=== PATIENT | female | born 1990 | race Caucasian/White ===

== ENCOUNTER 2018-11-20 11:18 | Outpatient (CLI) | payer OTHER ==
[2018-11-20 11:34] VITALS: BP 141/77; PULSE 120; RESP 15; TEMP 98.7
[2018-11-20 11:40] LABS: Appearance,Urine Clear (Clear); Bilirubin,Urine Negative (Negative); Blood,Urine Negative (Negative); Color,Urine Light Yellow; Glucose,Urine (UA) Negative (Negative); Ketones,Urine Negative (Negative); Leukocyte Esterase,Urine Negative (Negative); Nitrite,Urine Negative (Negative); Protein,Urine Negative (Negative); Specific Gravity,Urine 1.008 (1.001-1.035); Urobilinogen,Urine <2.0 mg/dL (<2.0)
--- NOTE | 2018-12-10 10:29 | P.MSEPDOC ---
Presenting Problems - Arrival Data Date of Arrival on Unit: 11/20/18 Time of Arrival on Unit: 11:18 Mode of Transport: Ambulatory - Complaint Comment: pain Medical History - Information : 1 Para: 0 Term: 0 : 0 Abortions: Spontaneous or Elective: 0 Number of Living Children: 0 - Gestational Age Gestational Age by WENDI (wks/days): 27 Weeks and 1 Days Review of Systems - Review of Systems Constitutional: No problems Breast: No problems ENT: No problems Cardiovascular: No problems Respiratory: No problems Gastrointestinal: No problems Genitourinary: No problems Musculoskeletal: No problems Neurological: No problems Skin: No problems Vital Signs - Temperature Temperature: 98.7 F Temperature Source: Temporal Artery Scan - Pulse Brachial Pulse Rate: 120 Pulse Assessment Method: Pulse Oximetry - Respirations Respiratory Rate: 15 Oxygen Delivery Method: Room Air O2 Sat by Pulse Oximetry: 99 - Blood Pressure Right Arm Sitting Blood Pressure: 141/77 Blood Pressure Mean: 98 Blood Pressure Source: Automatic Cuff Medical Screen Scoring (Pre) - Uterine Contractions Frequency: N/A Duration: N/A Intensity: N/A - Maternal Vital Signs Maternal Temperature: N/A Maternal Blood Pressure: N/A Signs of Preeclampsia: N/A Maternal Respirations: N/A - Pain Assessment Pain Location and Character: Left, Back, Abdomen Pain Scale Used: Numeric (1 - 10) Pain Intensity: 8 Pain Description: *Acute Pain Frequency: Intermittent Pain Duration Units: Days Pain Behavior: Vocalization Pain Aggravating Factors: Activity - Assessment Baseline FHR: 130 Heart Rate - NICHD Category: Category I (Normal) = 0 Position: N/A Station: N/A - Total Score Total Score (Pre): 0 - Level of Risk Level of Risk: N/A Medical Screen Scoring (Post) - Cervical Exam Dilation: 0 cm = 0 Membranes: Intact - Total Score Total Score (Post): 0 - Post Treatment Level of Risk Post Treatment Level of Risk: Low (0-5) Physician Notification (Post) - Physician Notified Physician Notified Date: 11/20/18 Physician Notified Time: 12:10 Spoke With: Dr Duran New Order Received: Yes - Notification Comment Comment: pt here with c/o left sided back pain that shoots towards the front. pt states it started 3 days ago and is occassional. RN observed a couple irregular contx,pt's cervix closed, no bleeding, reasurring fht, u/a normal. orders received to dc pt home and f/u this week with OB per t.o. Dr Duran Disposition - Disposition OB Disposition: Triage, Discharge to home, Written follow up instructions reviewed Discharge Date: 11/20/18 Discharge Time: 12:23 I agree with the RN Medical Screening Exam: Yes Physician's MSE Comment: signs and symptoms of labor discussed per nursing staff. May use heating pad as needed, suspect round ligament pain. Risk & Benefit of care provided described in d/c instruction: Yes Diagnosis: RELATED CONDITIONS, UNSPECIFIED, THIRD TRIMESTER
== END 2018-11-20 12:24 | disposition home or self-care (01) ==
LOC: FBPOP 11:18
PROVIDERS: ATTEND Obstetrics & Gynecology
DX: O26.93 Pregnancy related conditions, unspecified, third trimester (principal); Z3A.27 27 weeks gestation of pregnancy
CPT/HCPCS: 81003; G0463; 99213

== ENCOUNTER 2018-12-16 10:37 | Observation (INO) | payer OTHER ==
[2018-12-16] MEDS ORDERED: NIFEdipine 10 MG CAP PO STA (11:09)
[2018-12-16] MEDS: LACTATED RINGERS 1,000 ML IV SCH ×3 (11:25→17:07)
--- NOTE | 2018-12-16 12:37 | US ---
EXAMINATION TYPE: US OB >= 14 wk fetus DATE OF EXAM: 12/16/2018 COMPARISON: None CLINICAL HISTORY: complete OB ultrasound; pre term contractions TECHNIQUE: Transabdominal (TA) GESTATIONAL AGE / DATING Physician Established: (30 weeks/6 days) EDC: 02/18/2019 Dates by LMP: LMP unknown Dates by First Scan: No previous scan here Dates by Current Scan: (33 weeks/3 days) EDC: 01/31/2019 Beta HCG (if available): NA SURVEY IUP: Single PLACENTA: Anterior PREVIA: No Previa YUNIOR: 15.5 cm Normal CERVICAL LENGTH (transabdominal: norm > 3.0cm): 3.86 cm BIOMETRY PRESENTATION: Vertex LIE: Longitudinal BPD: 8.8 cm 35 weeks / 2 days HC: 30.6 cm 34 weeks / 0 days AC: 28.4 cm 32 weeks / 3 days FL: 6.5 cm 33 weeks / 4 days ESTIMATED WEIGHT IN GRAMS: 2133 grams ESTIMATED WEIGHT IN LBS/OZ: 4 lbs. 11 oz. WEIGHT PERCENTAGE BASED ON ESTABLISHED DATES: 97.0% HC/AC: 1.08 Normal FL/AC: 22.92 Normal HEART RATE: 128 bpm RHYTHM: Normal Tech findings relayed to patient's RNGely at exam's end. JJ IMPRESSION: Limited survey. Single viable intrauterine corresponding to ultrasound age 33 weeks 3 days with estimated date of delivery January 31, 2019
--- NOTE | 2018-12-16 12:39 | US ---
EXAMINATION TYPE: US OB TV Cervical Measurement DATE OF EXAM: 12/16/2018 COMPARISON: NONE REASON FOR EXAM: Per Ordering Physician?this transvaginal scan is to assess the CERVICAL LENGTH for i ncompetence or funneling. GESTATIONAL AGE / DATING Physician Established: (30 weeks/6 days) EDC: 02/18/2019 Dates by Current Scan: See TA OB US today, 33weeks/3 days MATERNAL/ SURVEY CERVICAL LENGTH (transvaginal: norm> 2.5cm): 3.6 cm post contraction per patient Ultrasound evidence of shortened cervix? no Ultrasound evidence of funneling? no HEART RATE: 128 bpm TA US RHYTHM: Normal IMPRESSION: Cervical length within normal limits
--- NOTE | 2018-12-16 12:41 | P.PN ---
Progress Note - Text Progress Note Date: 12/16/18 This is a 28-year-old 1 woman who is 30-6/7 weeks' gestation presents to labor and delivery triage with some abdominal tightening. She is found to be deandra every 2 minutes. IV fluid hydration is initiated. Cervical length is 3.6 cm, fibronectin negative however her cervix is 1 cm dilated 40% effaced and the vertex is in the -3 station. Plan is to observe for the next several hours. Should She have ongoing contractions and/or further dilation of the cervix we will transport to a tertiary care facility. Single dose of betamethasone will be given at this time. She'll be closely followed. status is reassuring by external monitoring for gestational age.
[2018-12-16] MEDS: BETAMET ACET-BETAMETH SOD PHOS 6 MG/ML VIAL IM SCH (12:48)
[2018-12-16 12:50] LABS: Basophils # (A) 0.1 k/uL (0-0.2); Basophils % (A) 0 %; Eosinophils # (A) 0.4 k/uL (0-0.7); Eosinophils % (A) 2 %; HCT 36.4 % (34.0-46.0); HGB 12.3 gm/dL (11.4-16.0); Lymphocytes # (A) 2.5 k/uL (1.0-4.8); Lymphocytes % (A) 15 %; MCH 28.8 pg (25.0-35.0); MCHC 33.6 g/dL (31.0-37.0); MCV 85.6 fL (80.0-100.0); Mean Platelet Volume 8.2; Monocytes # (A) 0.9 k/uL (0-1.0); Monocytes % (A) 5 %; Neutrophils # (A) 12.1 k/uL (1.3-7.7); Neutrophils % (A) 74 %; Platelet Count 274 k/uL (150-450); RBC 4.26 m/uL (3.80-5.40); RDW 13.1 % (11.5-15.5); WBC 16.3 k/uL (3.8-10.6)
[2018-12-16] MEDS ORDERED: LACTATED RINGERS 1,000 ML IV SCH (13:00)
[2018-12-16 13:22] LABS: Appearance,Urine Clear (Clear); Bacteria,Urine Rare /hpf; Bilirubin,Urine Negative (Negative); Blood,Urine Negative (Negative); Color,Urine Yellow; Glucose,Urine (UA) Negative (Negative); Ketones,Urine Negative (Negative); Leukocyte Esterase,Urine Small (Negative); Mucus,Urine Rare /hpf; Nitrite,Urine Negative (Negative); Protein,Urine Negative (Negative); RBC,Urine 1 /hpf (0-5); Specific Gravity,Urine 1.013 (1.001-1.035); Squamous Epithelial Cell,Urine 3 /hpf (0-4); Urobilinogen,Urine <2.0 mg/dL (<2.0); WBC,Urine 1 /hpf (0-5)
[2018-12-16] MEDS ORDERED: NIFEdipine 10 MG CAP PO PRN (16:27)
--- NOTE | 2018-12-16 16:39 | P.HPOB ---
History of Present Illness H&P Date: 12/16/18 Chief Complaint: Abdominal pain This is a 28-year-old 1 para 0 woman who presents at 30-6/7 weeks' gestation with nonspecific abdominal pain. This started on over the last several hours. She denies any vaginal bleeding or leakage of fluids. She was concerned she had contractions therefore came into labor and delivery. She was seen for similar complaints 2 weeks ago and her cervix was noted to be closed, thick and high. On presentation here her cervix is 1 cm dilated, 40% effaced and vertex -3 station. Prior to vaginal examination a fibronectin was collected and the results are negative. She had a transvaginal cervical length ultrasound with a cervical length of 3.86 cm. On was in the vertex presentation with an estimated weight greater than the 97th percentile. On tocometer she is found to have a persistently variable pattern. Over 5 hours of observation her cervix has remained unchanged at 1 cm, 40% and the vertex in the -3 station. Her has been uncomplicated up until this point. She reports good movement. Review of Systems Constitutional: Denies chills, Denies fever Cardiovascular: Denies chest pain, Denies shortness of breath Respiratory: Denies congestion, Denies cough Gastrointestinal: Reports abdominal pain, Denies BRBPR, Denies change in bowel habits, Denies diarrhea, Denies heartburn, Denies nausea, Denies vomiting Genitourinary: Reports , Denies abnormal vaginal bleeding Musculoskeletal: Reports low back pain Integumentary: Denies rash Neurological: Denies headaches Psychiatric: Denies anxiety, Denies depression Hematologic/Lymphatic: Denies easy bleeding, Denies easy bruising Past Medical History History of Any Multi-Drug Resistant Organisms: None Reported Smoking Status: Never smoker Medications and Allergies Home Medications Medication Instructions Recorded Confirmed Type No Known Home Medications 11/20/18 11/20/18 History Allergies Allergy/AdvReac Type Severity Reaction Status Date / Time No Known Allergies Allergy Verified 11/20/18 11:28 Exam Intake and Output 12/16/18 12/16/18 12/16/18 06:59 14:59 22:59 Other: Weight 82.554 kg This is a pleasant-appearing visibly gravid, female. She is in no obvious distress. HEENT exam is unremarkable. Her breathing is unlabored and her lungs are clear to auscultation. The heart is a regular rate and rhythm. The abdomen is gravid, soft and nontender with no flank pain no upper quadrant pain and the uterus palpates soft. On pelvic examination she is normal female external genitalia. On cervical exam the cervix is 1 cm dilated, 40% effaced and the vertex is in the -3 station. Neurologically she is grossly intact. She has trace lower extremity edema. heart tones are reassuring for gestational age by external monitoring and tocometer shows an irritable pattern Results Result Diagrams: 12/16/18 11:30 Abnormal Lab Results - Last 24 Hours (Table) 12/16/18 12/16/18 Range/Units 10:45 11:30 WBC 16.3 H (3.8-10.6) k/uL Neutrophils # 12.1 H (1.3-7.7) k/uL Ur Leukocyte Esterase Small H (Negative) Urine Bacteria Rare H (None) /hpf Urine Mucus Rare H (None) /hpf Assessment and Plan (1) 30 weeks gestation of Current Visit: Yes Status: Acute Code(s): Z3A.30 - 30 WEEKS GESTATION OF SNOMED Code(s): 98818165 (2) contractions Current Visit: Yes Status: Acute Code(s): O47.00 - FALSE LABOR BEFORE 37 COMPLETED WEEKS OF GEST, UNSP TRI SNOMED Code(s): 340587817 Plan: 28-year-old 1 at 30-6/7 weeks' gestation with contractions, 1 cm dilated. Negative fibronectin and normal cervical length ultrasound. Patient is admitted for ongoing observation secondary to precarious gestational age and cervical exam. She has received her initial dose of betamethasone and will remain in-house until she receives her second dose of betamethasone. At that time we will monitor for labor and should she have any progression of her symptoms or cervical dilation she is aware we will transfer her to a level III NICU facility for further evaluation. As she has not had any cervical change while here I will not initiate tocolysis at this time. Counseled the patient that magnesium sulfate will be started should she have any increase in contraction activity with cervical change. She is to be on bed rest with bathroom privileges, DVT prophylaxis. status is reassuring by external monitoring and OB ultrasound which shows an appropriately grown vertex .
[2018-12-16 17:01] VITALS: BP 137/79; PULSE 92; RESP 18; TEMP 98.1
[2018-12-16 17:06] VITALS: BMI 30.2
[2018-12-16] MEDS ORDERED: ACETAMINOPHEN TAB 325 MG TAB PO PRN (18:57)
--- NOTE | 2018-12-17 07:54 | P.DS ---
Providers Date of admission: 12/16/18 16:30 Expected date of discharge: 12/17/18 Attending physician: Love Sheth Primary care physician: Stated None - Discharge Diagnosis(es) (1) 30 weeks gestation of Current Visit: Yes Status: Acute (2) contractions Current Visit: Yes Status: Acute Hospital Course: This is a 28-year-old 1 para 0 woman who was admitted at 30-6/7 weeks' gestation with persistent contractions and cervix dilated 1 cm. Despite reassuring testing with negative fibronectin and cervical length of greater than 3.6 cm, she continued to have an irritable uterine pattern and concerning cervical exam. Therefore she was admitted for observation overnight. She did have intermittent contraction activity that she described as very mild. She was able to sleep throughout the night without disruption. This morning she reports good movement and no contractions or abdominal discomfort. She denies leakage of fluid or vaginal bleeding. On repeat cervical examination the cervix is 1, 25% and the vertex high. She was therefore discharged home pending administration of her second dose of betamethasone to decreased activity. Patient Condition at Discharge: Stable Plan - Discharge Summary New Discharge Prescriptions: New NIFEdipine [Procardia] 10 mg PO TID PRN #30 cap PRN Reason: Contractions Discharge Medication List NIFEdipine [Procardia] 10 mg PO TID PRN #30 cap 12/17/18 [Rx] Follow up Appointment(s)/Referral(s): Love Sheth MD [STAFF PHYSICIAN] - 12/20/18 Activity/Diet/Wound Care/Special Instructions: Return to the family place with any significant increase in uterine contractions or abdominal pain not improved by Procardia, vaginal bleeding, rupture of membranes, decreased movement. No intercourse, nothing in the vagina. Decreased activity at home with minimal driving, no vigorous exercise or extended periods of ambulation. Discharge Disposition: HOME SELF-CARE
[2018-12-17] MEDS: BETAMET ACET-BETAMETH SOD PHOS 6 MG/ML VIAL IM SCH (12:46)
== END 2018-12-17 13:32 | disposition home or self-care (01) ==
LOC: FBPOP 10:37 → 4FBP 16:30
PROVIDERS: ADMIT Obstetrics & Gynecology; ATTEND Obstetrics & Gynecology
DX: O60.03 Preterm labor without delivery, third trimester (principal); Z3A.30 30 weeks gestation of pregnancy
CPT/HCPCS: 96360; 96372 ×2; 82731; 85025; 81001; 76805; 76817; G0378 ×2; J0702 ×2

== ENCOUNTER 2019-01-18 13:21 | Outpatient (CLI) | payer OTHER ==
[2019-01-18 14:02] VITALS: BP 139/83; PULSE 111; RESP 18; TEMP 98.2
--- NOTE | 2019-02-08 09:43 | P.MSEPDOC ---
Presenting Problems - Arrival Data Date of Arrival on Unit: 01/18/19 Time of Arrival on Unit: 13:35 Mode of Transport: Ambulatory - Complaint OB-Reason for Admission/Chief Complaint: Rule Out SROM Comment: what had a gush of clear fluid around 1100 this am, small amout of leaking since Medical History - Information : 1 Para: 0 Term: 0 : 0 Abortions: Spontaneous or Elective: 0 Number of Living Children: 0 - Gestational Age Gestational Age by EWNDI (wks/days): 35 Weeks and 4 Days - History Comment: pt has been treated for labor with this , also recieved 2 doses of celestone in Nov Review of Systems - Review of Systems Constitutional: No problems Breast: No problems ENT: Nasal congestion Cardiovascular: No problems Respiratory: No problems Gastrointestinal: Diarrhea Genitourinary: No problems Musculoskeletal: No problems Neurological: Dizziness Skin: No problems Comment: dizziness after talking a shower Vital Signs - Temperature Temperature: 98.2 F Temperature Source: Temporal Artery Scan - Pulse Pulse Oximetery Pulse Rate: 111 Pulse Assessment Method: Automatic Cuff - Respirations Respiratory Rate: 18 Oxygen Delivery Method: Room Air - Blood Pressure Right Arm Blood Pressure: 139/83 Blood Pressure Mean: 101 Blood Pressure Source: Automatic Cuff Medical Screen Scoring (Pre) - Cervical Exam Dilation: 1-3 cm = 1 Effacement: More than 50% = 2 - Uterine Contractions Frequency: < 36 weeks = 6 Duration: N/A Intensity: N/A - Pain Assessment Pain Location and Character: Abdomen Pain Scale Used: Numeric (1 - 10) Pain Intensity: 1 Pain Description: Cramping Pain Radiation Location: none Pain Frequency: Intermittent Pain Duration: 6 Pain Duration Units: Hours Pain Behavior: None Exhibited Effects of Pain: none - Assessment Baseline FHR: 130 Heart Rate - NICHD Category: Category I (Normal) = 0 NST: Reactive Station: N/A - Total Score Total Score (Pre): 9 - Level of Risk Level of Risk: Low (0-5) Physician Notification (Pre) - Physician Notified Physician Notified Date: 01/18/19 Medical Screen Scoring (Post) - Cervical Exam Dilation: Exam Deferred Effacement: Exam Deferred Membranes: Intact - Uterine Contractions Frequency: > 5 minutes apart = 1 Duration: > 40 seconds = 2 Intensity: N/A - Maternal Vital Signs Maternal Temperature: N/A Maternal Blood Pressure: N/A Signs of Preeclampsia: N/A Maternal Respirations: N/A - Maternal Trauma Maternal Trauma: N/A - Assessment Heart Rate: 130 Heart Rate - NICHD Category: Category I (Normal) = 0 NST: Reactive Position: N/A Station: N/A - Total Score Total Score (Post): 3 - Post Treatment Level of Risk Post Treatment Level of Risk: Low (0-5) Physician Notification (Post) - Physician Notified Physician Notified Date: 01/18/19 Physician Notified Time: 15:38 Physician/Practitioner Notified:: Meryl Spoke With: Meryl New Order Received: Yes - Notification Comment Comment: Reviewed FHT strip, negative amnisure, pt may be d/c home, to follow up as scheduled. Disposition - Disposition OB Disposition: Discharge to home, Written follow up instructions reviewed Discharge Date: 01/18/19 Discharge Time: 15:50 I agree with the RN Medical Screening Exam: Yes Risk & Benefit of care provided described in d/c instruction: Yes Diagnosis: FALSE LABOR BEFORE 37 COMPLETED WEEKS OF GEST, THIRD TRI
== END 2019-01-18 15:50 | disposition home or self-care (01) ==
LOC: FBPOP 13:21
PROVIDERS: ATTEND Obstetrics & Gynecology
DX: O47.03 False labor before 37 completed weeks of gestation, third trimester (principal); Z3A.35 35 weeks gestation of pregnancy
CPT/HCPCS: 84112; G0463; 99213

== ENCOUNTER 2019-01-24 01:49 | Outpatient (CLI) | payer OTHER ==
[2019-01-24 02:05] VITALS: BP 145/88; PULSE 102; RESP 16; TEMP 98.3
--- NOTE | 2019-02-20 09:59 | P.MSEPDOC ---
Presenting Problems - Arrival Data Date of Arrival on Unit: 01/24/19 Time of Arrival on Unit: 01:49 Mode of Transport: Wheelchair - Complaint OB-Reason for Admission/Chief Complaint: Possible Onset of Labor Comment: Contractions that are 3-4 minutes apart that started around 1800 this evening. Medical History - Information : 1 Para: 0 Term: 0 : 0 Abortions: Spontaneous or Elective: 0 Number of Living Children: 0 - Gestational Age Gestational Age by WENDI (wks/days): 36 Weeks and 3 Days - History Comment: labor this , no longer on procardia Review of Systems - Review of Systems Constitutional: No problems Breast: No problems ENT: No problems Cardiovascular: No problems Respiratory: No problems Gastrointestinal: No problems Genitourinary: No problems Musculoskeletal: No problems Neurological: No problems Skin: No problems Vital Signs - Temperature Temperature: 98.3 F Temperature Source: Temporal Artery Scan - Pulse Pulse Oximetery Pulse Rate: 102 Pulse Assessment Method: Automatic Cuff - Respirations Respiratory Rate: 16 Oxygen Delivery Method: Room Air - Blood Pressure Sitting Blood Pressure: 145/88 Blood Pressure Mean: 107 Blood Pressure Source: Automatic Cuff Medical Screen Scoring (Pre) - Cervical Exam Dilation: 1-3 cm = 1 Effacement: More than 50% = 2 Membranes: Intact - Uterine Contractions Frequency: > 5 minutes apart = 1 Duration: > 40 seconds = 2 Intensity: N/A - Maternal Vital Signs Maternal Temperature: N/A Maternal Blood Pressure: N/A Signs of Preeclampsia: N/A Maternal Respirations: N/A - Pain Assessment Pain Scale Used: Numeric (1 - 10) Pain Intensity: 8 Pain Management Goal: 5 Pain Description: *Acute, Cramping Pain Frequency: Intermittent - Maternal Trauma Maternal Trauma: N/A - Assessment Baseline FHR: 135 Heart Rate - NICHD Category: Category I (Normal) = 0 NST: Reactive Position: N/A Station: N/A - Total Score Total Score (Pre): 6 - Level of Risk Level of Risk: Medium (6-9) Physician Notification (Pre) - Physician Notified Physician Notified Date: 01/24/19 Physician Notified Time: 02:58 Physician/Practitioner Notifed:: Dr. Ramos New Order Received: Yes - Notification Comment Comment: Discharge patient home with instructions, patient to follow up in the office with Dr. Sheth in the am. Disposition - Disposition OB Disposition: Discharge to home Discharge Date: 01/24/19 Discharge Time: 02:58 I agree with the RN Medical Screening Exam: Yes Risk & Benefit of care provided described in d/c instruction: Yes Diagnosis: FALSE LABOR BEFORE 37 COMPLETED WEEKS OF GEST, THIRD TRI
== END 2019-01-24 03:05 | disposition home or self-care (01) ==
LOC: FBPOP 01:49
PROVIDERS: ATTEND Obstetrics & Gynecology Obstetrics
DX: O47.03 False labor before 37 completed weeks of gestation, third trimester (principal); Z3A.36 36 weeks gestation of pregnancy
CPT/HCPCS: 59025; G0463; 99213

== ENCOUNTER 2019-02-04 11:48 | Outpatient (CLI) | payer OTHER ==
[2019-02-04 13:00] LABS: Appearance,Urine Clear (Clear); Bilirubin,Urine Negative (Negative); Blood,Urine Negative (Negative); Color,Urine Light Yellow; Glucose,Urine (UA) Negative (Negative); Ketones,Urine Negative (Negative); Leukocyte Esterase,Urine Small (Negative); Mucus,Urine Rare /hpf; Nitrite,Urine Negative (Negative); Protein,Urine Negative (Negative); Specific Gravity,Urine 1.007 (1.001-1.035); Squamous Epithelial Cell,Urine 1 /hpf (0-4); Urobilinogen,Urine <2.0 mg/dL (<2.0); WBC,Urine 3 /hpf (0-5)
[2019-02-04 13:04] LABS: ALT 33 U/L (9-52); AST 23 U/L (14-36); Blood Urea Nitrogen 12 mg/dL (7-17); LDH 528 U/L (313-618); Uric Acid 4.7 mg/dL (3.7-7.4)
[2019-02-04 13:22] LABS: Basophils # (A) 0.1 k/uL (0-0.2); Basophils % (A) 0 %; Eosinophils # (A) 0.3 k/uL (0-0.7); Eosinophils % (A) 2 %; HCT 36.5 % (34.0-46.0); HGB 12.2 gm/dL (11.4-16.0); Lymphocytes # (A) 2.4 k/uL (1.0-4.8); Lymphocytes % (A) 15 %; MCH 27.1 pg (25.0-35.0); MCHC 33.4 g/dL (31.0-37.0); MCV 80.9 fL (80.0-100.0); Mean Platelet Volume 8.7; Monocytes # (A) 0.8 k/uL (0-1.0); Monocytes % (A) 5 %; Neutrophils # (A) 11.9 k/uL (1.3-7.7); Neutrophils % (A) 74 %; Platelet Count 299 k/uL (150-450); Poikilocytosis Slight; RBC 4.51 m/uL (3.80-5.40); RDW 14.2 % (11.5-15.5); WBC 16.1 k/uL (3.8-10.6)
[2019-02-04 13:46] VITALS: PULSE 96; TEMP 97.3
[2019-02-04 13:50] VITALS: BP 137/81; RESP 14
--- NOTE | 2019-03-03 21:52 | P.MSEPDOC ---
Presenting Problems - Arrival Data Date of Arrival on Unit: 02/04/19 Time of Arrival on Unit: 11:49 Mode of Transport: Ambulatory - Complaint OB-Reason for Admission/Chief Complaint: Possible Onset of Labor Comment: contraction since this morning Medical History - Information : 1 Para: 0 Term: 0 : 0 Abortions: Spontaneous or Elective: 0 Number of Living Children: 0 - Gestational Age Gestational Age by WENDI (wks/days): 38 Weeks and 0 Days Review of Systems - Review of Systems Constitutional: No problems Breast: No problems ENT: No problems Cardiovascular: No problems Respiratory: No problems Gastrointestinal: No problems Genitourinary: No problems Musculoskeletal: No problems Neurological: No problems Skin: No problems Vital Signs - Temperature Temperature: 97.3 F Temperature Source: Temporal Artery Scan - Pulse Right Brachial Pulse Rate: 96 Pulse Assessment Method: Automatic Cuff - Respirations Respiratory Rate: 14 Oxygen Delivery Method: Room Air - Blood Pressure Right Arm Blood Pressure: 137/81 Blood Pressure Mean: 99 Blood Pressure Source: Automatic Cuff Medical Screen Scoring (Pre) - Cervical Exam Dilation: 1-3 cm = 1 Effacement: More than 50% = 2 Membranes: Intact - Uterine Contractions Frequency: > 5 minutes apart = 1 Duration: > 40 seconds = 2 Intensity: N/A - Maternal Vital Signs Maternal Temperature: N/A Maternal Blood Pressure: Diastolic > 89 = 1 Signs of Preeclampsia: N/A Maternal Respirations: N/A - Pain Assessment Pain Location and Character: Lower, Abdomen Pain Scale Used: Numeric (1 - 10) Pain Intensity: 5 Pain Management Goal: 3 Pain Description: Cramping Pain Frequency: Intermittent Pain Duration: 6 Pain Duration Units: Hours Pain Behavior: None Exhibited Pain Aggravating Factors: Contractions - Maternal Trauma Maternal Trauma: N/A - Assessment Baseline FHR: 135 Heart Rate - NICHD Category: Category I (Normal) = 0 NST: Reactive, Non-reactive = 3 Position: N/A - Total Score Total Score (Pre): 10 - Level of Risk Level of Risk: High (10+) Physician Notification (Pre) - Physician Notified Physician Notified Date: 02/04/19 Physician Notified Time: 12:33 Physician/Practitioner Notifed:: melva Spoke With: melva New Order Received: Yes - Notification Comment Comment: reported pt visit as documented in obix, reported bps. orders for PIH work-up. dr will be over to see pt Medical Screen Scoring (Post) - Cervical Exam Dilation: 1-3 cm = 1 Effacement: More than 50% = 2 Membranes: Intact - Uterine Contractions Frequency: > 5 minutes apart = 1 Duration: > 40 seconds = 2 Intensity: N/A - Maternal Vital Signs Maternal Temperature: N/A Maternal Blood Pressure: N/A Signs of Preeclampsia: N/A Maternal Respirations: N/A - Assessment Heart Rate: 135 - Total Score Total Score (Post): 6 - Post Treatment Level of Risk Post Treatment Level of Risk: Medium (6-9) Physician Notification (Post) - Physician Notified Physician Notified Date: 02/04/19 Physician Notified Time: 13:15 Physician/Practitioner Notified:: melva Spoke With: melva New Order Received: Yes - Notification Comment Comment: dr frye at bedside speaking with pt r/t discharged and follow up appointment. Disposition - Disposition OB Disposition: Discharge to home Discharge Date: 02/04/19 Discharge Time: 13:32 I agree with the RN Medical Screening Exam: Yes Risk & Benefit of care provided described in d/c instruction: Yes Diagnosis: FALSE LABOR AT OR AFTER 37 COMPLETED WEEKS OF GESTATION
== END 2019-02-04 13:32 | disposition home or self-care (01) ==
LOC: FBPOP 11:48
PROVIDERS: ATTEND Obstetrics & Gynecology
DX: O47.1 False labor at or after 37 completed weeks of gestation (principal); Z3A.38 38 weeks gestation of pregnancy
CPT/HCPCS: 59025; 82570; 84156; 82565; 83615; 84450; 84460; 84520; 84550; 85025; 81001; G0463; 99215

== ENCOUNTER 2019-02-05 00:20 | Inpatient (IN) | payer OTHER ==
[2019-02-05] MEDS ORDERED: LIDOCAINE 0.5% (PF) 5 MG/ML (50 ML SDV) SQ PRN (00:57)
[2019-02-05] MEDS ORDERED: OXYTOCIN 10 UNIT/ML 1 ML VIAL IM PRN (00:57)
[2019-02-05] MEDS ORDERED: TERBUTALINE 1 MG/ML VIAL SQ PRN (00:57)
[2019-02-05] MEDS ORDERED: CARBOPROST TROMETHAMINE 250 MCG/ML 1 ML AMP IM PRN (00:57)
[2019-02-05] MEDS ORDERED: METHYLERGONOVINE 0.2 MG/ML 1 ML AMP IM PRN (00:57)
[2019-02-05] MEDS ORDERED: PENICILLIN G POTASSIUM 5,000,000 UNIT in DEXTROSE 5% IN WATER 100 ML IVPB STA ×2 (01:00)
[2019-02-05] MEDS: LACTATED RINGERS 1,000 ML IV SCH ×3 (01:18→21:36)
[2019-02-05 01:23] VITALS: BMI 31.9
[2019-02-05 01:33] LABS: Basophils # (A) 0.1 k/uL (0-0.2); Basophils % (A) 1 %; Eosinophils # (A) 0.5 k/uL (0-0.7); Eosinophils % (A) 3 %; HCT 34.5 % (34.0-46.0); HGB 11.5 gm/dL (11.4-16.0); Lymphocytes # (A) 2.9 k/uL (1.0-4.8); Lymphocytes % (A) 17 %; MCHC 33.2 g/dL (31.0-37.0); MCV 81.3 fL (80.0-100.0); Mean Platelet Volume 8.7; Monocytes % (A) 6 %; Neutrophils # (A) 11.4 k/uL (1.3-7.7); Neutrophils % (A) 69 %; Platelet Count 325 k/uL (150-450); Poikilocytosis Slight; RBC 4.25 m/uL (3.80-5.40); RDW 14.3 % (11.5-15.5); WBC 16.6 k/uL (3.8-10.6)
[2019-02-05] MEDS ORDERED: SODIUM CHLORIDE 0.9% 100 ML BAG ONE (02:55)
[2019-02-05] MEDS ORDERED: ROPIVACAINE 5MG/ML 20ML VIAL ONE (02:55)
[2019-02-05] MEDS ORDERED: fentaNYL (PF) 50 MCG/ML 5 ML AMP ONE (02:55)
[2019-02-05] MEDS: PENICILLIN G POTASSIUM 2,500,000 UNIT in DEXTROSE 5% IN WATER 100 ML IVPB SCH ×4 (05:17→21:36)
[2019-02-05] MEDS ORDERED: KETOROLAC 30 MG/ML 1 ML VIAL ONE (05:42)
[2019-02-05] MEDS ORDERED: ONDANSETRON 4 MG/2 ML VIAL ONE (05:42)
[2019-02-05] MEDS ORDERED: OXYTOCIN 10 UNIT/ML 1 ML VIAL ONE (05:42)
[2019-02-05] MEDS ORDERED: CITRIC ACID-SODIUM CITRATE 15 ML CUP PO ONE (05:46)
--- NOTE | 2019-02-05 06:30 | P.HPOB ---
History of Present Illness H&P Date: 02/05/19 Chief Complaint: Rupture of membranes This is a 28-year-old 1 para 0 woman at 38 and one sevenths weeks gestation who presents with spontaneous rupture of membranes at approximately 2320 on 02/04/2019. At presentation rupture of membranes was confirmed and she was found to be regularly deandra every 4-6 minutes. Her cervix was 3+ centimeters dilated. Her has been complicated by multiple episodes of contractions. She says estimated weight greater than the 95th percentile on recent ultrasound. Her blood type is O- and she is group B strep positive. Review of Systems All systems: negative Past Medical History Past Medical History: Asthma History of Any Multi-Drug Resistant Organisms: None Reported Past Surgical History: No Surgical Hx Reported Past Anesthesia/Blood Transfusion Reactions: No Reported Reaction Past Psychological History: Anxiety Smoking Status: Never smoker Past Alcohol Use History: None Reported Past Drug Use History: None Reported - Past Family History Mother Family Medical History: No Reported History Medications and Allergies Home Medications Medication Instructions Recorded Confirmed Type Pedi Multivit No.25/Folic Acid 2 tab PO DAILY 02/04/19 02/05/19 History [Flintstones Multivit Chew Tab] Allergies Allergy/AdvReac Type Severity Reaction Status Date / Time blackberry Allergy Anaphylaxis Verified 02/05/19 00:56 blueberry Allergy Anaphylaxis Verified 02/05/19 00:56 raspberry Allergy Anaphylaxis Verified 02/05/19 00:56 strawberry Allergy Anaphylaxis Verified 02/05/19 00:56 Exam Vital Signs Temp Pulse Resp BP Pulse Ox 02/05/19 01:18 98.1 F 86 16 160/84 100 Intake and Output 02/04/19 02/04/19 02/05/19 14:59 22:59 06:59 Output Total 150 Balance -150 Output: Urine 150 Straight 150 Other: Weight 87.09 kg Upon my initial evaluation the patient is resting comfortably with an epidural anesthetic in place. On pelvic exam the cervix is 7+ centimeters dilated, 90% effaced and the vertex is in the -2 station. scalp electrode is placed on Provera better management of heart tones secondary to the several episodes of late and variable appearing heart tone decelerations following the patient receiving her epidural. She is deandra spontaneously every 2-4 minutes. Results Result Diagrams: 02/05/19 00:35 Abnormal Lab Results - Last 24 Hours (Table) 02/05/19 Range/Units 00:35 WBC 16.6 H (3.8-10.6) k/uL Neutrophils # 11.4 H (1.3-7.7) k/uL Assessment and Plan (1) 38 weeks gestation of Current Visit: Yes Status: Acute Code(s): Z3A.38 - 38 WEEKS GESTATION OF SNOMED Code(s): 38121068 (2) GBS (group B Streptococcus carrier), +RV culture, currently Current Visit: Yes Status: Acute Code(s): O99.820 - STREPTOCOCCUS B CARRIER STATE COMPLICATING SNOMED Code(s): 4768478568239 (3) Spontaneous rupture of membranes Current Visit: Yes Status: Acute Code(s): SNG8227 - SNOMED Code(s): 831660382 (4) Spontaneous onset of labor Current Visit: Yes Status: Acute Code(s): IPS7990 - SNOMED Code(s): 61835554 (5) Rh negative, maternal Current Visit: Yes Status: Acute Code(s): O26.899 - OTH RELATED CONDITIONS, UNSPECIFIED TRIMESTER; Z67.91 - UNSPECIFIED BLOOD TYPE, RH NEGATIVE SNOMED Code(s): 645052823 Plan: Cyst 28-year-old 1 para 0 woman with an estimated due date of 02/18/2019 who presents at 38 and one sevenths weeks gestation with spontaneous rupture of membranes and onset of labor. heart tones are currently category 2 with decelerations but positive variability. Plan is for close heart tone on the maternal monitoring. Patient and her have been counseled regarding the possibility of delivery should the labor and progress in the setting of nonreassuring heart tones.
[2019-02-05] MEDS ORDERED: ONDANSETRON 4 MG/2 ML VIAL IVP PRN (06:36)
[2019-02-05] MEDS ORDERED: METOCLOPRAMIDE 5 MG/ML 2 ML VIAL IVP PRN (06:36)
[2019-02-05] MEDS ORDERED: diphenhydrAMINE 50 MG/ML 1 ML VIAL IVP PRN (06:36)
[2019-02-05] MEDS ORDERED: Acetaminophen-Codeine 300-30mg TAB PO PRN ×2 (06:36)
--- NOTE | 2019-02-05 06:36 | P.OP ---
Date of Procedure: 02/05/19 Preoperative Diagnosis: Intrauterine at 38 and one sevenths weeks gestation Spontaneous rupture of membranes and active labor Category 3 heart tones Group B strep positive Rh- maternal status Estimated weight greater than the 95th percentile by ultrasound Postoperative Diagnosis: Same plus Occiput posterior position Nuchal cord 1 Procedure(s) Performed: Primary low transverse section Anesthesia: epidural Surgeon: Love Sheth Tennis Racket Repairer #1: Vonda Vazquez Estimated Blood Loss (ml): 600 IV fluids (ml): 800 Urine output (ml): 200 Pathology: none sent Condition: stable Disposition: floor Operative Findings: Male infant in the occiput posterior position with nuchal cord 1. Apgars of 9 at 1 minute and 9 at 5 minutes weighing 8 lbs. 8 oz., 3860 g. Normal-appearing bilateral fallopian tubes and ovaries, intact, three-vessel cord placenta Description of Procedure: After the patient was counseled and consent was obtained, she was taken to the operating room. Her epidural anesthetic had been bolused. She was positioned, prepped and draped in the dorsal supine position with a leftward tilt. Anesthesia was confirmed adequate and a low transverse skin incision was made and carried down to the underlying fascia sharply. The fascia was incised in the midline and extended bilaterally with the Phan scissors. Superior aspect of the fascial incision was elevated and the underlying rectus muscles dissected off sharply. The inferior aspect of the fascial incision was elevated and the underlying rectus muscles dissected off sharply. The rectus muscles were then bluntly in the midline and the peritoneum was tented up using hemostats. The peritoneum was then entered sharply. The peritoneal incision was extended inferiorly and superiorly with the Metzenbaum scissors with excellent visualization of the bladder. Bladder blade was placed. A low transverse uterine incision was made on and carried down to the underlying amniotic membranes. Clear fluid was noted. The uterine incision was extended bilaterally bluntly. Umbilical cord prolapse from the and incision. The head was delivered from the deep maternal pelvis in the occiput posterior position. Once head was delivered nuchal cord was reduced. The rest the was then delivered onto the field. Nose and mouth were bulb suctioned. The cord was clamped and cut and the infant was taken to the warmer. An intact, three-vessel cord placenta was then manually removed. The uterus was exteriorized and cleared of all clot and debris. The uterine incision was delineated using Vasquez's. The uterine incision was then closed in a running locked fashion with 0 Vicryl suture followed by second imbricating layer of the same suture. At this time Dr. Vazquez joined the procedure to assist. The uterine incision was inspected and noted to be hemostatic. The uterus was returned to the abdomen and the gutters were cleared of all clot and debris. The uterine incision was reinspected and again noted to be hemostatic. The rectus muscles, peritoneal edges and fascial edges were inspected and noted to be hemostatic. The fascia was then closed in a running locked fashion with 0 Vicryl suture in halves. The subcuticular tissue with 3-0 chromic. The skin was closed in a subcutaneous fashion with 4-0 Vicryl suture. All counts reported to be as correct by the operating room staff. Patient was transported recovery area in good condition.
[2019-02-05] MEDS ORDERED: DIPH,PERTUS(ACELL)TETVAC-LF 0.5 ML VIAL IM ONE (07:57)
[2019-02-05] MEDS: HYDROmorphone 1 MG/ML 1 ML SYRINGE IVP PRN ×2 (10:50→17:30)
[2019-02-05] MEDS: SENNOSIDES-DOCUSATE SODIUM 1 EACH TAB PO SCH ×2 (12:28→20:09)
[2019-02-05] MEDS: KETOROLAC 30 MG/ML 1 ML VIAL IVP PRN ×2 (12:30→20:08)
[2019-02-05] MEDS: SIMETHICONE 80 MG CHEWABLE PO PRN (14:35)
[2019-02-05] MEDS ORDERED: Rhogam IMMUNE GLOBULIN 1,500 UNIT/1 ML IM ONE (15:50)
[2019-02-06] MEDS: KETOROLAC 30 MG/ML 1 ML VIAL IVP PRN ×2 (01:56→08:53)
[2019-02-06] MEDS ORDERED: ACETAMINOPHEN TAB 325 MG TAB PO PRN (06:37)
[2019-02-06 08:16] LABS: Basophils % (A) 0 %; Eosinophils # (A) 0.4 k/uL (0-0.7); Eosinophils % (A) 2 %; HCT 28.6 % (34.0-46.0); Lymphocytes # (A) 2.4 k/uL (1.0-4.8); Lymphocytes % (A) 16 %; MCH 27.9 pg (25.0-35.0); MCHC 33.9 g/dL (31.0-37.0); MCV 82.4 fL (80.0-100.0); Mean Platelet Volume 9.2; Monocytes # (A) 0.8 k/uL (0-1.0); Monocytes % (A) 5 %; Neutrophils # (A) 11.3 k/uL (1.3-7.7); Neutrophils % (A) 73 %; Platelet Count 243 k/uL (150-450); RBC 3.47 m/uL (3.80-5.40); RDW 14.4 % (11.5-15.5); WBC 15.6 k/uL (3.8-10.6)
[2019-02-06 08:19] LABS: HGB 9.7 gm/dL (11.4-16.0)
--- NOTE | 2019-02-06 08:37 | P.PNOBGPC ---
Subjective - Subjective Principal diagnosis: Status post section Patient reports: Reports appetite normal, Reports voiding normally, Reports pain well controlled, Reports ambulating normally, Denies dizzy ambulation, Denies nauseated : doing well (Monitoring bilirubin levels) Objective - Vital Signs Latest vital signs: Vital Signs Temp Pulse Resp BP Pulse Ox 02/06/19 07:34 98.0 F 93 15 126/68 96 02/06/19 04:00 98.6 F 80 18 122/69 98 02/05/19 23:08 98.5 F 97 18 120/77 98 02/05/19 20:00 98.1 F 93 18 137/89 97 02/05/19 15:59 98.2 F 80 16 124/80 98 02/05/19 12:00 98.1 F 75 16 137/71 98 Intake and Output 02/05/19 02/06/19 02/06/19 22:59 06:59 14:59 Intake Total 1200 Output Total 500 1000 Balance 700 -1000 Intake: Oral 1200 Output: Urine 500 1000 Other: # Voids 1 - Exam Extremities: Present: edema Abdomen: Present: soft, distention. Absent: tenderness Incision: Present: normal, dry, intact. Absent: erythematous Uterus: Present: normal, firm. Absent: tenderness - Labs Labs: Abnormal Lab Results - Last 24 Hours (Table) 02/06/19 Range/Units 06:17 WBC 15.6 H (3.8-10.6) k/uL RBC 3.47 L (3.80-5.40) m/uL Hgb 9.7 L D (11.4-16.0) gm/dL Hct 28.6 L (34.0-46.0) % Neutrophils # 11.3 H (1.3-7.7) k/uL Assessment and Plan (1) 38 weeks gestation of Current Visit: Yes Status: Acute Code(s): Z3A.38 - 38 WEEKS GESTATION OF SNOMED Code(s): 20553266 (2) GBS (group B Streptococcus carrier), +RV culture, currently Current Visit: Yes Status: Acute Code(s): O99.820 - STREPTOCOCCUS B CARRIER STATE COMPLICATING SNOMED Code(s): 9293443950135 (3) Spontaneous rupture of membranes Current Visit: Yes Status: Acute Code(s): LYP2153 - SNOMED Code(s): 495065034 (4) Spontaneous onset of labor Current Visit: Yes Status: Acute Code(s): QVL8636 - SNOMED Code(s): 09298205 (5) Rh negative, maternal Current Visit: Yes Status: Acute Code(s): O26.899 - OT RELATED CONDITIONS, UNSPECIFIED TRIMESTER; Z67.91 - UNSPECIFIED BLOOD TYPE, RH NEGATIVE SNOMED Code(s): 415202049 (6) Non-reassuring heart rate or rhythm affecting management of fetus Current Visit: Yes Status: Acute Code(s): FXY6254 - SNOMED Code(s): 063874315 (7) S/P section Current Visit: Yes Status: Acute Code(s): Z98.891 - HISTORY OF UTERINE SCAR FROM PREVIOUS SURGERY SNOMED Code(s): 117404367 (8) Nuchal cord Current Visit: Yes Status: Acute Code(s): O69.82X0 - LABOR AND DEL COMP BY OT CORD ENTANGLE, W/O COMPRSN, UNSP SNOMED Code(s): 661979162 Plan: Postop day 1 status post primary low transverse section for nonreassuring heart tones. She is recovering well. is being monitored for elevated bilirubin levels and may require further therapy.
[2019-02-06] MEDS: SENNOSIDES-DOCUSATE SODIUM 1 EACH TAB PO SCH ×2 (08:53→19:39)
[2019-02-06] MEDS: SIMETHICONE 80 MG CHEWABLE PO PRN ×2 (08:54→18:00)
[2019-02-06 16:00] VITALS: RESP 16
[2019-02-06] MEDS: IBUPROFEN 600 MG TAB PO PRN (22:05)
[2019-02-07] MEDS: SENNOSIDES-DOCUSATE SODIUM 1 EACH TAB PO SCH ×2 (07:48→23:33)
[2019-02-07] MEDS: IBUPROFEN 600 MG TAB PO PRN ×3 (07:48→20:38)
--- NOTE | 2019-02-07 14:44 | P.PNOBGPC ---
Subjective - Subjective Principal diagnosis: Postoperative day 2 Interval history: Feeling significantly better today with good pain control, decreased bleeding and no problems with ambulate and voiding. Patient reports: Reports appetite normal, Reports voiding normally, Reports pain well controlled, Reports ambulating normally, Denies dizzy ambulation Grannis: doing well Objective - Vital Signs Latest vital signs: Vital Signs Temp Pulse Resp BP 02/07/19 08:00 97.8 F 104 H 16 125/74 02/07/19 00:00 99 F 99 16 148/89 02/06/19 15:55 98.3 F 108 H 16 124/75 Intake and Output 02/06/19 02/07/19 02/07/19 22:59 06:59 14:59 Other: # Voids 1 - Exam Extremities: Present: normal Abdomen: Present: normal appearance, soft. Absent: distention, tenderness Incision: Present: normal, dry, intact, other (Slight redness upper aspect of the incision) Uterus: Present: normal, firm. Absent: tenderness Assessment and Plan (1) 38 weeks gestation of Current Visit: Yes Status: Acute Code(s): Z3A.38 - 38 WEEKS GESTATION OF SNOMED Code(s): 90341491 (2) GBS (group B Streptococcus carrier), +RV culture, currently Current Visit: Yes Status: Acute Code(s): O99.820 - STREPTOCOCCUS B CARRIER STATE COMPLICATING SNOMED Code(s): 6895443610779 (3) Spontaneous rupture of membranes Current Visit: Yes Status: Acute Code(s): KMK1946 - SNOMED Code(s): 482927483 (4) Spontaneous onset of labor Current Visit: Yes Status: Acute Code(s): MSS2718 - SNOMED Code(s): 8 9794908 (5) Rh negative, maternal Current Visit: Yes Status: Acute Code(s): O26.899 - OTH RELATED CONDITIONS, UNSPECIFIED TRIMESTER; Z67.91 - UNSPECIFIED BLOOD TYPE, RH NEGATIVE SNOMED Code(s): 189696885 (6) Non-reassuring heart rate or rhythm affecting management of fetus Current Visit: Yes Status: Acute Code(s): FFP7129 - SNOMED Code(s): 729349810 (7) S/P section Current Visit: Yes Status: Acute Code(s): Z98.891 - HISTORY OF UTERINE SCAR FROM PREVIOUS SURGERY SNOMED Code(s): 311771343 (8) Nuchal cord Current Visit: Yes Status: Acute Code(s): O69.82X0 - LABOR AND DEL COMP BY OTH CORD ENTANGLE, W/O COMPRSN, UNSP SNOMED Code(s): 090371701 Plan: Postop day 2 status post primary low transverse section. Recovering well. Monitor incision for signs of infection. Probable discharge home tomorrow pending bilirubin of the .
[2019-02-07 15:59] LABS: Basophils # (A) 0.1 k/uL (0-0.2); Basophils % (A) 0 %; Eosinophils # (A) 0.5 k/uL (0-0.7); Eosinophils % (A) 4 %; HCT 30.7 % (34.0-46.0); HGB 10.5 gm/dL (11.4-16.0); Lymphocytes # (A) 1.7 k/uL (1.0-4.8); Lymphocytes % (A) 13 %; MCH 28.5 pg (25.0-35.0); MCHC 34.3 g/dL (31.0-37.0); MCV 83.1 fL (80.0-100.0); Mean Platelet Volume 8.5; Monocytes # (A) 0.6 k/uL (0-1.0); Monocytes % (A) 4 %; Neutrophils # (A) 9.9 k/uL (1.3-7.7); Neutrophils % (A) 74 %; Platelet Count 295 k/uL (150-450); RBC 3.69 m/uL (3.80-5.40); RDW 14.4 % (11.5-15.5); WBC 13.4 k/uL (3.8-10.6)
[2019-02-07 16:05] LABS: ALT 28 U/L (9-52); AST 21 U/L (14-36); Blood Urea Nitrogen 13 mg/dL (7-17); LDH 636 U/L (313-618); Uric Acid 3.5 mg/dL (3.7-7.4)
[2019-02-07 16:15] LABS: INR 0.8 (<1.2); Prothrombin Time 9.2 sec (9.0-12.0)
[2019-02-08] MEDS: IBUPROFEN 600 MG TAB PO PRN ×2 (06:38→11:59)
[2019-02-08] MEDS: SENNOSIDES-DOCUSATE SODIUM 1 EACH TAB PO SCH (07:25)
[2019-02-08 07:46] VITALS: BP 135/79; PULSE 92; TEMP 98.3
--- NOTE | 2019-02-08 09:32 | P.DS ---
Providers Date of admission: 02/05/19 00:37 Expected date of discharge: 02/08/19 Attending physician: Love Sheth Primary care physician: Stated None - Discharge Diagnosis(es) (1) 38 weeks gestation of Current Visit: Yes Status: Acute (2) GBS (group B Streptococcus carrier), +RV culture, currently Current Visit: Yes Status: Acute (3) Spontaneous rupture of membranes Current Visit: Yes Status: Acute (4) Spontaneous onset of labor Current Visit: Yes Status: Acute (5) Rh negative, maternal Current Visit: Yes Status: Acute (6) Non-reassuring heart rate or rhythm affecting management of fetus Current Visit: Yes Status: Acute (7) S/P section Current Visit: Yes Status: Acute (8) Nuchal cord Current Visit: Yes Status: Acute Hospital Course: This is a 28-year-old 1 now para 1 woman who presented with spontaneous rupture of membranes and labor at 38+ weeks gestation. Following the admission she did receive an epidural anesthetic and progressed to approximately 8 cm dilated. Unfortunately she had ongoing nonreassuring heart tones and therefore was taken for primary low transverse section. Findings at the time of surgery were significant for a nuchal cord 1 and occiput posterior position. Please see the operative report for details. The patient's postoperative course was unremarkable. By postoperative day #1 she was ambulating and voiding without difficulty. She did have some abdominal distent ion but was passing gas. By postoperative day #2 she continued to do well. Her lochia was decreasing and her incision appeared well healing. She did have some moderately elevated blood pressures but otherwise was asymptomatic. Labs were gathered as a precaution and all were within normal limits. By the morning of postoperative day #3 she continued to do well. She had trace lower extremity ed cate. Her incision appeared intact and well-healing. She is ambulating and voiding without difficulty and was pumping successfully. Patient was therefore discharged home with routine instructions for postoperative care and follow-up. Procedures: Primary low transverse section Patient Condition at Discharge: Good Plan - Discharge Summary New Discharge Prescriptions: New Ibuprofen [Motrin] 600 mg PO Q6HR PRN tab PRN Reason: Mild Discomfort Sennosides-Docusate Sodium [Senokot-S] 2 each PO BID tab Acetaminophen Tab [Tylenol] 650 mg PO Q6HR PRN tab PRN Reason: Fever And/Or Mild Pain Continue Pedi Multivit No.25/Folic Acid [Flintstones Multivit Chew Tab] 2 tab PO DAILY Discharge Medication List Pedi Multivit No.25/Folic Acid [Flintstones Multivit Chew Tab] 2 tab PO DAILY 02/04/19 [History] Acetaminophen Tab [Tylenol] 650 mg PO Q6HR PRN tab 02/08/19 [Rx] Ibuprofen [Motrin] 600 mg PO Q6HR PRN tab 02/08/19 [Rx] Sennosides-Docusate Sodium [Senokot-S] 2 each PO BID tab 02/08/19 [Rx] Follow up Appointment(s)/Referral(s): Love Sheth MD [STAFF PHYSICIAN] - 2 Weeks Activity/Diet/Wound Care/Special Instructions: Follow-up in 2 weeks after surgery in the office. Call the office with any concerning signs or symptoms including fever greater than 101, severe abdominal pain, heavy vaginal bleeding, signs of wound infection, increased swelling or redness of the lower extremities, signs of depression. No driving for 2 weeks after surgery. No heavy lifting or vigorous activity until reevaluated in the office. No intercourse for 6 weeks after delivery. Discharge Disposition: HOME SELF-CARE
== END 2019-02-08 15:50 | disposition home or self-care (01) | DRG 786 ==
LOC: FBPOP 00:20 → 4FBP 00:37
PROVIDERS: ADMIT Obstetrics & Gynecology; ATTEND Obstetrics & Gynecology
PROC: 00HU33Z Insertion of Infusion Device into Spinal Canal, Percutaneous Approach (ICD-10-PCS; 2019-02-05)
PROC: 3E0R3BZ Introduction of Anesthetic Agent into Spinal Canal, Percutaneous Approach (ICD-10-PCS; 2019-02-05)
PROC: 3E0234Z Introduction of Serum, Toxoid and Vaccine into Muscle, Percutaneous Approach (ICD-10-PCS; 2019-02-05)
PROC: 3E0234Z Introduction of Serum, Toxoid and Vaccine into Muscle, Percutaneous Approach (ICD-10-PCS; 2019-02-05)
PROC: 10D00Z1 Extraction of Products of Conception, Low, Open Approach (ICD-10-PCS; principal; 2019-02-05 05:52)
DX: O64.0XX0 Obstructed labor due to incomplete rotation of fetal head, not applicable or unspecified (principal); O60.22X0 Term delivery with preterm labor, second trimester, not applicable or unspecified; O69.81X0 Labor and delivery complicated by cord around neck, without compression, not applicable or unspecified; O76 Abnormality in fetal heart rate and rhythm complicating labor and delivery; O99.824 Streptococcus B carrier state complicating childbirth; Z23 Encounter for immunization; O26.893 Other specified pregnancy related conditions, third trimester; Z67.41 Type O blood, Rh negative; O99.52 Diseases of the respiratory system complicating childbirth; J45.909 Unspecified asthma, uncomplicated; Z3A.38 38 weeks gestation of pregnancy; Z37.0 Single live birth; R03.0 Elevated blood-pressure reading, without diagnosis of hypertension; F41.9 Anxiety disorder, unspecified; O99.344 Other mental disorders complicating childbirth; Z79.899 Other long term (current) drug therapy; Z91.018 Allergy to other foods
CPT/HCPCS: 82565; 83615; 84450; 84460; 84520; 84550; 85025; 85384; 85461; 85610; 85730; 86850; 86870; 86880; 86900; 86901; 90471; 90715

== ENCOUNTER 2019-02-12 19:56 | Emergency (ER) | payer OTHER ==
[2019-02-12 21:29] LABS: Basophils % (A) 0 %; Eosinophils # (A) 0.5 k/uL (0-0.7); Eosinophils % (A) 3 %; HCT 38.3 % (34.0-46.0); HGB 12.8 gm/dL (11.4-16.0); Lymphocytes # (A) 2.2 k/uL (1.0-4.8); Lymphocytes % (A) 15 %; MCH 27.8 pg (25.0-35.0); MCHC 33.5 g/dL (31.0-37.0); Mean Platelet Volume 7.5; Monocytes # (A) 0.6 k/uL (0-1.0); Monocytes % (A) 4 %; Neutrophils % (A) 75 %; Platelet Count 402 k/uL (150-450); RBC 4.61 m/uL (3.80-5.40); RDW 13.9 % (11.5-15.5); WBC 14.7 k/uL (3.8-10.6)
[2019-02-12 21:31] LABS: ALT 23 U/L (9-52); AST 17 U/L (14-36); Albumin 3.8 g/dL (3.5-5.0); Alkaline Phosphatase 135 U/L (38-126); Anion Gap 9 mmol/L; Blood Urea Nitrogen 16 mg/dL (7-17); Calcium 9.1 mg/dL (8.4-10.2); Carbon Dioxide 23 mmol/L (22-30); Chloride 108 mmol/L (98-107); Glucose 92 mg/dL (74-99); Potassium 4.1 mmol/L (3.5-5.1); Sodium 140 mmol/L (137-145); Total Bilirubin 0.4 mg/dL (0.2-1.3); Total Protein 6.7 g/dL (6.3-8.2)
[2019-02-12 21:40] LABS: Appearance,Urine Cloudy (Clear); Bacteria,Urine Occasional /hpf; Bilirubin,Urine Negative (Negative); Blood,Urine Large (Negative); Budding Yeast,Urine Few /hpf; Color,Urine Yellow; Glucose,Urine (UA) Negative (Negative); Ketones,Urine Negative (Negative); Leukocyte Esterase,Urine Large (Negative); Mucus,Urine Rare /hpf; Nitrite,Urine Negative (Negative); PH, Urine 5.5 (5.0-8.0); Protein,Urine Negative (Negative); RBC,Urine 9 /hpf (0-5); Specific Gravity,Urine 1.013 (1.001-1.035); Squamous Epithelial Cell,Urine 9 /hpf (0-4); Urobilinogen,Urine <2.0 mg/dL (<2.0)
[2019-02-12] MEDS ORDERED: CEPHALEXIN 500MG STARTER PACK 4 CAP BTL PO STA (22:29)
--- NOTE | 2019-02-12 22:30 | ED ---
Abdominal Pain HPI - General Chief Complaint: Abdominal Pain Stated Complaint: Chills,Abd Pain Time Seen by Provider: 02/12/19 20:29 Source: patient, family Mode of arrival: ambulatory Limitations: no limitations - History of Present Illness Initial Comments: 28-year-old female presenting today for chief complaint of abdominal pain. Patient states that she had a 1 week prior. Patient states she was doing more housework than usual the past few days. She was lifting more than she should've been. Patient states she has pain that occurs at the site of incision extending towards the vagina. Patient states that increases with inversion. This is patient's first and . Patient denies any fever, states she gets occasional chills. Denies any redness or drainage from the incision site. Patient states after is not tender to palpation. Patient states she does have mild dysuria denies hematuria. States she has serosanguin eous vaginal bleeding she states that she was told this was a normal finding. Remaining review of systems negative, patient denies any recent shortness of breath, chest pain, back pain, nausea or vomiting, numbness or tingling, , constipation or diarrhea, headaches or visual changes, or any other complaints. Patient is currently breast-feeding. - Related Data Home Medications Medication Instructions Recorded Confirmed Pedi Multivit No.25/Folic Acid 2 tab PO DAILY 02/04/19 02/05/19 [Flintstones Multivit Chew Tab] Previous Rx's Medication Instructions Recorded Acetaminophen Tab [Tylenol] 650 mg PO Q6HR PRN tab 02/08/19 Ibuprofen [Motrin] 600 mg PO Q6HR PRN tab 02/08/19 Sennosides-Docusate Sodium 2 each PO BID tab 02/08/19 [Senokot-S] Cephalexin [Keflex] 500 mg PO Q8HR 7 Days #21 cap 02/12/19 Allergies Allergy/AdvReac Type Severity Reaction Status Date / Time blackberry Allergy Anaphylaxis Verified 02/05/19 00:56 blueberry Allergy Anaphylaxis Verified 02/05/19 00:56 raspberry Allergy Anaphylaxis Verified 02/05/19 00:56 strawberry Allergy Anaphylaxis Verified 02/05/19 00:56 mulberry Allergy Anaphylaxis Uncoded 02/12/19 20:09 Review of Systems ROS Statement: Those systems with pertinent positive or pertinent negative responses have been documented in the HPI. ROS Other: All systems not noted in ROS Statement are negative. Past Medical History Past Medical History: Asthma History of Any Multi-Drug Resistant Organisms: None Reported Past Surgical History: Section Past Anesthesia/Blood Transfusion Reactions: No Reported Reaction Past Psychological History: Anxiety Smoking Status: Never smoker Past Alcohol Use History: None Reported Past Drug Use History: None Reported - Past Family History Mother Family Medical History: No Reported History General Exam - General Exam Comments Initial Comments: General: The patient is awake and alert, in no distress, and does not appear acutely ill. Eye: Pupils are equal, round and reactive to light, extra-ocular movements are intact. No nystagmus. There is normal conjunctiva bilaterally. No signs of icterus. Ears, nose, mouth and throat: There are moist mucous membranes and no oral lesions. Neck: The neck is supple, there is no tenderness or JVD. Cardiovascular: There is a regular rate and rhythm. No murmur, rub or gallop is appreciated. Respiratory: Lungs are clear to auscultation, respirations are non-labored, breath sounds are equal. No wheezes, stridor, rales, or rhonchi. Gastrointestinal: Soft, non-distended, mild tenderness to palpation of the lower abdomen without masses or organomegaly noted. There is no rebound or guarding present. No CVA tenderness. Bowel sounds are unremarkable. Horizontal incision with steri strips in place no drainage or erythema. No significant tenderness to palpation. Musculoskeletal: Normal ROM, no tenderness. Strength 5/5. Sensation intact. Pulses equal bilaterally 2+. Neurological: A&O x 3. CN II-XII intact, There are no obvious motor or sensory deficits. Coordination appears grossly intact. Speech is normal. Skin: Skin is warm and dry and no rashes or lesions are noted. Psychiatric: Cooperative, appropriate mood & affect, normal judgment. Limitations: no limitations Course Vital Signs 02/12/19 02/12/19 20:05 22:54 Temperature 98.9 F 98.2 F Pulse Rate 92 96 Respiratory 20 18 Rate Blood Pressure 146/85 157/94 O2 Sat by Pulse 100 97 Oximetry Medical Decision Making - Medical Decision Making Well-appearing 28-year-old female presenting for abdominal pain. No significant tenderness to palpation, feel that the tenderness that is present consistent with recent section. There is no erythema of the incision or drainage. No erythema of the abdomen. Pt complains of dysuria. Urinalysis consistent with infection. Patient will be treated with Keflex. After discussing the case with attending provider Dr. Lanza we feel patient is stable for discharge with outpatient OBGYN follow-up. Patient is agreeable with care plan and discharge. I discussed the importance of weight restrictions, and rest. Return parameters were discussed something the patient including developed a fever, patient v erbalized understanding - Lab Data Result diagrams: 02/12/19 20:40 02/12/19 20:40 Lab Results 02/12/19 02/12/19 02/12/19 Range/Units 20:40 20:40 20:40 WBC 14.7 H (3.8-10.6) k/uL RBC 4.61 (3.80-5.40) m/uL Hgb 12.8 (11.4-16.0) gm/dL Hct 38.3 (34.0-46.0) % MCV 83.0 (80.0-100.0) fL MCH 27.8 (25.0-35.0) pg MCHC 33.5 (31.0-37.0) g/dL RDW 13.9 (11.5-15.5) % Plt Count 402 (150-450) k/uL Neutrophils % 75 % Lymphocytes % 15 % Monocytes % 4 % Eosinophils % 3 % Basophils % 0 % Neutrophils # 11.0 H (1.3-7.7) k/uL Lymphocytes # 2.2 (1.0-4.8) k/uL Monocytes # 0.6 (0-1.0) k/uL Eosinophils # 0.5 (0-0.7) k/uL Basophils # 0.0 (0-0.2) k/uL Sodium 140 (137-145) mmol/L Potassium 4.1 (3.5-5.1) mmol/L Chloride 108 H (98-107) mmol/L Carbon Dioxide 23 (22-30) mmol/L Anion Gap 9 mmol/L BUN 16 (7-17) mg/dL Creatinine 0.80 (0.52-1.04) mg/dL Est GFR (CKD-EPI)AfAm >90 (>60 ml/min/1.73 sqM) Est GFR (CKD-EPI)NonAf >90 (>60 ml/min/1.73 sqM) Glucose 92 (74-99) mg/dL Calcium 9.1 (8.4-10.2) mg/dL Total Bilirubin 0.4 (0.2-1.3) mg/dL AST 17 (14-36) U/L ALT 23 (9-52) U/L Alkaline Phosphatase 135 H (38-126) U/L Total Protein 6.7 (6.3-8.2) g/dL Albumin 3.8 (3.5-5.0) g/dL Urine Color Yellow Urine Appearance Cloudy H (Clear) Urine pH 5.5 (5.0-8.0) Ur Specific Spencer 1.013 (1.001-1.035) Urine Protein Negative (Negative) Urine Glucose (UA) Negative (Negative) Urine Ketones Negative (Negative) Urine Blood Large H (Negative) Urine Nitrite Negative (Negative) Urine Bilirubin Negative (Negative) Urine Urobilinogen <2.0 (<2.0) mg/dL Ur Leukocyte Esterase Large H (Negative) Urine RBC 9 H (0-5) /hpf Urine WBC 125 H (0-5) /hpf Ur Squamous Epith Cells 9 H (0-4) /hpf Urine Bacteria Occasional H (None) /hpf Urine Mucus Rare H (None) /hpf Urine Yeast (Budding) Few H (None) /hpf Disposition Clinical Impression: Post-operative pain, UTI (urinary tract infection) Disposition: HOME SELF-CARE Condition: Good Instructions (If sedation given, give patient instructions): Urinary Tract Infection in Women (ED) Additional Instructions: Please use medication as discussed. Please follow-up with OBGYN on Thursday. Please return to emergency room if the symptoms increase or worsen or for any other concerns. Prescriptions: Cephalexin [Keflex] 500 mg PO Q8HR 7 Days #21 cap Is patient prescribed a controlled substance at d/c from ED?: No Referrals: Callie Dumas MD [Primary Care Provider] - 1-2 days Time of Disposition: 22:29
[2019-02-12 22:56] VITALS: BP 157/94; PULSE 96; RESP 18; TEMP 98.2
== END 2019-02-12 22:56 | disposition home or self-care (01) ==
LOC: EC 19:56
DX: N39.0 Urinary tract infection, site not specified (principal); G89.18 Other acute postprocedural pain; Z91.018 Allergy to other foods; Z98.890 Other specified postprocedural states
CPT/HCPCS: 36415; 80053; 81001; 85025; 87086; 99284